=== PATIENT | male | born 1985 | race Caucasian/White ===

== ENCOUNTER 2016-07-23 21:44 | Emergency (ER) | payer OTHER ==
[~2016-07-23] VITALS: Ht 188 cm; Wt 87.5 kg
[~2016-07-23 21:44] MED LIST: CIPR500T4 PO; COLC0.6T6 PO; IBUP-1542 PO
[2016-07-23 22:19] VITALS: Ht 188 cm; Wt 87.5 kg
--- NOTE | 2016-07-23 23:51 | ERD ---
ER Documentation Chief Complaint Date/Time DATE: 07/23/16 TIME: 23:50 Chief Complaint R SIDE FLANK PAIN X 1.5 WEEK HX OF mediterranean fever HPI 30-year-old male presents to emergency department for complaint of right flank pain for 10 days. Patient described the pain sharp pain, 6/10 scale, not better or worse with anything. Patient denies hematuria or dysuria. Patient denies any abdominal pain. Patient denies any nausea or vomiting. Patient denies any diarrhea or constipation. Patient did not have any trauma in the back. ROS All systems reviewed and are negative except as per history of present illness. Medications Home Meds Active Scripts Ciprofloxacin Hcl* (Ciprofloxacin Hcl*) 500 Mg Tablet, 500 MG PO BID for 7 Days , TAB Prov:BERNABE MEDINA MD 11/13/15 Ibuprofen* (Motrin*) 600 Mg Tab, 600 MG PO Q8 for FEVER, #30 TAB Prov:BERNABE MEDINA MD 11/13/15 Reported Medications Colchicine* (Colcrys*) 0.6 Mg Tablet, 0.6 MG PO TID, TAB 11/13/15 Allergies Allergies: Coded Allergies: No Known Allergy (Unverified , 11/13/15) PMhx/Soc History of Surgery: No Anesthesia Reaction: No Hx Neurological Disorder: No Hx Respiratory Disorders: No Hx Cardiac Disorders: No Hx Psychiatric Problems: No Hx Miscellaneous Medical Probl: Yes ("mediterranean fever") Hx Alcohol Use: No Hx Substance Use: No Hx Tobacco Use: Yes Smoking Status: Former smoker FmHx Family History: No coronary disease, No diabetes, No other Physical Exam Vitals Vital Signs Date Time Temp Pulse Resp B/P Pulse Ox O2 Delivery O2 Flow Rate FiO2 07/23/16 22:19 97.7 103 20 125/77 99 Physical Exam GENERAL: The patient is well developed and appropriate for usual state of health, in no apparent distress. CHEST: Clear to auscultation bilaterally. There are no rales, wheezes or rhonchi. HEART: Regular rate and rhythm. No murmurs, clicks, rubs or gallops. No S3 or S4. ABDOMEN: Soft, nontender and nondistended. Good bowel sounds. No rebound or guarding. No gross peritonitis. No gross organomegaly or masses. No Fu sign or McBurney point tenderness. BACK: No midline or flank tenderness. EXTREMITIES: Equal pulses bilaterally. There is no peripheral clubbing, cyanosis or edema. No focal swelling or erythema. Full range of motion. Grossly neurovascularly intact. NEURO: Alert and oriented. Cranial nerves 2-12 intact. Motor strength in all 4 extremities with 5/5 strength. Sensation grossly intact. Normal speech and gait. SKIN: There is no apparent rash or petechia. The skin is warm and dry. HEMATOLOGIC AND LYMPHATIC: There is no evidence of excessive bruising or lymphedema. No gross cervical, axillary, or inguinal lymphadenopathy. Result Diagram: 07/23/16 0012 07/23/16 0012 Results 24 hrs Laboratory Tests Test 07/23/16 00:12 07/23/16 23:59 White Blood Count 9.510^3/ul Red Blood Count 5.5710^6/ul Hemoglobin 13.1g/dl Hematocrit 43.4% Mean Corpuscular Volume 77.9fl Mean Corpuscular Hemoglobin 23.5pg Mean Corpuscular Hemoglobin Concent 30.2g/dl Red Cell Distribution Width 16.7% Platelet Count 39059^3/UL Mean Platelet Volume 9.8fl Neutrophils % 70.0% Lymphocytes % 20.5% Monocytes % 7.0% Eosinophils % 1.9% Basophils % 0.4% Nucleated Red Blood Cells % 0.0/100WBC Neutrophils # 6.710^3/ul Lymphocytes # 2.010^3/ul Monocytes # 0.710^3/ul Eosinophils # 0.210^3/ul Basophils # 0.010^3/ul Nucleated Red Blood Cells # 0.010^3/ul Sodium Level 140mmol/L Potassium Level 3.8mmol/L Chloride Level 103mmol/L Carbon Dioxide Level 26mmol/L Anion Gap 15 Blood Urea Nitrogen 15mg/dl Creatinine 0.91mg/dl Glucose Level 89mg/dl Calcium Level 9.2mg/dl Total Bilirubin 0.4mg/dl Direct Bilirubin 0.00mg/dl Indirect Bilirubin 0.4mg/dl Aspartate Amino Transf (AST/SGOT) 19IU/L Alanine Aminotransferase (ALT/SGPT) 38IU/L Alkaline Phosphatase 95IU/L Total Protein 7.8g/dl Albumin 4.7g/dl Globulin 3.10g/dl Albumin/Globulin Ratio 1.51 Lipase 99U/L Urine Color LT. YELLOW Urine Clarity CLEAR Urine pH 6.0 Urine Specific [place] 1.015 Urine Ketones NEGATIVE Urine Nitrite NEGATIVE Urine Bilirubin NEGATIVE Urine Urobilinogen 0.2 E.U./dL Urine Leukocyte Esterase NEGATIVE Urine Hemoglobin NEGATIVE Urine Glucose NEGATIVE% Urine Total Protein NEGATIVE PROCEDURE: CT ABDOMEN/PELVIS WITHOUT CONTRAST CLINICAL INDICATION: 30-year-old male with abdominal pain. TECHNIQUE: The study was performed utilizing a GE [employer] VCT 64-slice CT scanner. Direct axial sections were obtained through the abdomen and pelvis without the use of intravenous contrast material. Sagittal and coronal reformations were obtained. One or more of the following dose reduction techniques were utilized: automated exposure control, adjustment of the mA and/ or kV according to patient's size or use of iterative reconstruction technique. The images were reviewed on a PACS workstation. CTD/vol = 13.0 mGy; Total Exam DLP = 878.7 mGy-cm. COMPARISON: CT abdomen/pelvis November 13, 2015. FINDINGS: There is minimal anterior pericardial effusion. There is trace right basilar subsegmental atelectasis. There is no evidence for significant pleural effusion. The liver has a normal size and contour without focal areas of abnormal density. No intrahepatic nor extrahepatic biliary ductal dilatation is seen. The gallbladder is contracted without evidence for calcified stone with a thickened wall measuring up to 6.5 mm but without pericholecystic fluid. The pancreas is without areas of abnormal attenuation. The spleen is enlarged having a maximal length of 16.2 cm but without abnormal density. The adrenal glands are unremarkable. The kidneys are without abnormal density. No hydroureteronephrosis nor nephroureterolithiasis is evident. The urinary bladder contains urine. The stomach contains particular material. There is mild diffuse thickening of the distal small bowel and throughout the colon with prominent submucosal fat without evidence for obstruction. This is consistent with inflammatory bowel disease. The terminal ileum is mildly patulous. The appendix is visualized and is without abnormal thickening or surrounding inflammatory reaction. There is no significant free fluid. The prostate is not enlarged. The aortoiliac vessels are without aneurysmal dilatation. Again noted is mild sclerosis within the sacroiliac joints bilaterally but without significant interval change. IMPRESSION: 1. Minimal anterior pericardial effusion without interval change. 2. Contracted gallbladder with nonspecific gallbladder wall thickening. 3. Splenomegaly. 4. Particular material within the stomach. 5. Mild diffuse thickening of the distal small bowel and throughout the colon with prominent submucosal fat without obstruction. This is consistent with inflammatory bowel disease. 6. No CT evidence for appendicitis. 8. Mild sacroiliac disease without interval change. .vEerardo Cadena MD, Date Time Electronically viewed and signed by .Everardo Cadena MD, on 07/24/2016 00:53 .M/ CC: GIANA ROSE NP Procedures/MDM Medical Decision Making: Patient's symptoms of flank pain nonspecific at this time. No kidney stones noted. Patient also has inflammatory bowel disease seen in the CT scan may be causing some of the discomfort. No symptoms of any abdominal emergencies in the CT scan abdomen and pelvis. There is low suspicion for abdominal emergencies at this time. Patients abdominal exam is normal at this time. Patients radiology exam does not show any abdominal emergencies at this time. There is low suspicion for appendicitis, cholecystitis , abdominal aortic aneurysms or peritonitis at this time. There is low suspicion for sepsis. Patient appears well and is hemodynamically stable. Disposition: Home. Condition: Stable Instructions: Patient is advised to take medications as prescribed. Patient is advised to rest, increase fluid intake and do brat diet for next 1-2 days and progress as tolerated. Patient is advised that if symptoms are worse, severe abdominal pain, uncontrolled vomiting, high fever, severe flank pain, worst signs and symptoms, to return to the emergency department immediately. Otherwise, patient can follow up with primary care doctor in 5-7 days. Departure Diagnosis: Primary Impression: Flank pain Additional Impression: IBD (inflammatory bowel disease) Condition: Stable Patient Instructions: Flank Pain, Uncertain Cause, What Is IBS? GIANA ROSE NP Jul 23, 2016 23:51
[2016-07-24 00:37] LABS: ADD SCAN DIFF NO
[2016-07-24 00:40] LABS: BASOPHILS % 0.4 % (0.0-2.0); EOSINOPHILS # 0.2 10^3/ul (0.0-0.5); EOSINOPHILS % 1.9 % (0.0-7.0); HEMATOCRIT 43.4 % (42.0-52.0); HEMOGLOBIN 13.1 g/dl (14.0-18.0); LYMPHOCYTES % 20.5 % (15.0-51.0); MEAN CORPUSCULAR HEMOGLOBIN 23.5 pg (29.0-33.0); MEAN CORPUSCULAR HGB CONC 30.2 g/dl (32.0-37.0); MEAN CORPUSCULAR VOLUME 77.9 fl (82.0-101.0); MEAN PLATELET VOLUME 9.8 fl (7.4-10.4); MONOCYTE # 0.7 10^3/ul (0.3-0.9); NEUTROPHIL # 6.7 10^3/ul (1.6-7.5); PLATELET COUNT 294 10^3/UL (140-415); RED BLOOD COUNT 5.57 10^6/ul (4.70-6.10); RED CELL DISTRIBUTION WIDTH 16.7 % (11.5-14.5); WHITE BLOOD COUNT 9.5 10^3/ul (4.8-10.8)
--- NOTE | 2016-07-24 00:53 | RADRPT ---
PROCEDURE: CT ABDOMEN/PELVIS WITHOUT CONTRAST CLINICAL INDICATION: 30-year-old male with abdominal pain. TECHNIQUE: The study was performed utilizing a [employer] VCT 64-slice CT scanner. Direct axia l sections were obtained through the abdomen and pelvis without the use of intravenous contrast mate rial. Sagittal and coronal reformations were obtained. One or more of the following dose reduction t echniques were utilized: automated exposure control, adjustment of the mA and/or kV according to pat ient's size or use of iterative reconstruction technique. The images were reviewed on a PACS workst at[employer]. CTD/vol = 13.0 mGy; Total Exam DLP = 878.7 mGy-cm. COMPARISON: CT abdomen/pelvis November 13, 2015. FINDINGS: There is minimal anterior pericardial effusion. There is trace right basilar subsegmental atelectas is. There is no evidence for significant pleural effusion. The liver has a normal size and contour without focal areas of abnormal density. No intrahepatic nor extrahepatic biliary ductal dilatation is seen. The gallbladder is contracted without evidence for calcified stone with a thickened wall m easuring up to 6.5 mm but without pericholecystic fluid. The pancreas is without areas of abnormal a ttenuation. The spleen is enlarged having a maximal length of 16.2 cm but without abnormal density. The adrenal glands are unremarkable. The kidneys are without abnormal density. No hydroureteronephr osis nor nephroureterolithiasis is evident. The urinary bladder contains urine. The stomach contains particular material. There is mild diffuse thickening of the distal small bowel and throughout the colon with prominent submucosal fat without evidence for obstruction. This is consistent with inflammatory bowel disease. The terminal ileum is mildly patulous. The appendix is visualized and is without abnormal thickening or surrounding inflammatory reaction. There is no significant free fl uid. The prostate is not enlarged. The aortoiliac vessels are without aneurysmal dilatation. Again noted is mild sclerosis within the sacroiliac joints bilaterally but without significant interval c hange. IMPRESSION: 1. Minimal anterior pericardial effusion without interval change. 2. Contracted gallbladder with nonspecific gallbladder wall thickening. 3. Splenomegaly. 4. Particular material within the stomach. 5. Mild diffuse thickening of the distal small bowel and throughout the colon with prominent submuc osal fat without obstruction. This is consistent with inflammatory bowel disease. 6. No CT evidence for appendicitis. 8. Mild sacroiliac disease without interval change. .Everardo Cadena MD, MD Date Time Electronically viewed and signed by .Everardo Cadena MD, MD on 07/24/2016 00:53 ./
[2016-07-24 00:59] LABS: ADD UMIC NO; URINE BILIRUBIN (Dip) NEGATIVE (NEGATIVE); URINE BLOOD (Dip) NEGATIVE (NEGATIVE); URINE COLOR LT. YELLOW (YELLOW); URINE GLUCOSE (Dip) NEGATIVE (NEGATIVE); URINE KETONES (Dip) NEGATIVE (NEGATIVE); URINE LEUKOCYTE ESTERASE (Dip) NEGATIVE (NEGATIVE); URINE NITRITE (Dip) NEGATIVE (NEGATIVE); URINE TOTAL PROTEIN (Dip) NEGATIVE (NEGATIVE); URINE UROBILINOGEN (Dip) 0.2 E.U./dL (0.1-1.0)
[2016-07-24 00:59] LABS: ALBUMIN 4.7 g/dl (3.3-4.9); POTASSIUM 3.8 mmol/L (3.5-5.1)
[2016-07-24 01:15] LABS: ALBUMIN/GLOBULIN RATIO 1.51; BILIRUBIN,INDIRECT 0.4 mg/dl (0-1.1); BILIRUBIN,TOTAL 0.4 mg/dl (0.2-1.3); CALCIUM 9.2 mg/dl (8.4-10.2); CREATININE 0.91 mg/dl (0.61-1.24); TOTAL PROTEIN 7.8 g/dl (6.1-8.1)
[2016-07-24 01:56] VITALS: BP 135/79; PULSE 90; RESP 16
== END 2016-07-24 01:57 | disposition home or self-care (01) ==
LOC: FTE 21:44
DX: R10.9 Unspecified abdominal pain (principal); K63.89 Other specified diseases of intestine; Z87.891 Personal history of nicotine dependence
CPT/HCPCS: 36415; 74176; 80053; 81003; 83690; 85025; Z7502